=== PATIENT | male | born 1940 | race Caucasian/White ===

== ENCOUNTER 2017-04-21 22:11 | Inpatient (IN) | payer MEDICARE, OTHER ==
[~2017-04-21] VITALS: Ht 175.3 cm; Wt 76.8 kg
--- NOTE | ~2017-04-21 | HP ---
History And Physical [facility] [address] [place]. [address] NAME: ANUSHKA ROSARIO : 44 STATUS : ADM Colleen PAT#: [id number] AGE: 76 ADM/REG DATE : 04/21/17 MR#: [id number] REPORT SERV DATE: 04/22/17 DICTATED BY: REJI HERMOSILLO DATE: 04/22/17 REPORT STATUS : Draft TRANSCRIBED BY: MODL DATE: 04/22/17 DATE OF ADMISSION: 04/21/2017 CHIEF COMPLAINT: Fell off a ladder and became dizzy and passed out. 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 History is obtained from the patient and his and reviewing data available on the [employer] system as well. According to Mr. Rosario this afternoon, he was on a ladder trying to cut some branches off a tree, while coming down, he missed a step and fell off the ladder. He says he fell off about a height of 12 to 15 feet and fell to the ground. He fortunately fell onto some shrubbery which he says it partially broke his fall. However, he is not sure if he hit his head against anything. He was able to get up and was able to go into the house and he checked himself out. He felt okay, so he went back out outside and he was trying to do some other work in the yard. Then suddenly he started having weakness in both his lower extremities along with some dizziness, and he decided he was not feeling well, went on to a chair and sat down. This is how his found him while later. She says he was too weak even to stand up and was slow to speak. She is not sure if he passed out. The patient does not remember what had happened. She decided to bring him to the emergency room. Upon arrival here, they had difficulty getting him out of the car when he passed out again. In the emergency room, initial workup revealed hypotension upon arrival. He also had acute kidney injury, leukocytosis, and an elevated troponin as well. Hospitalist Service is asked to admit him for further evaluation and treatment. At the time of my evaluation, he denied any chest pain, palpitations, or orthopnea. He had no cough, hemoptysis, night sweats, or weight loss. He has not had any recent fevers or chills. No history of nausea, vomiting, diarrhea, hematemesis, hematochezia, or hematuria. No other history of recent travel or exposures other than those mentioned above. 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 He also has a history of some dementia. SOCIAL HISTORY: He does not smoke, drink, or use recreational. FAMILY HISTORY: Noncontributory. MEDICATIONS: At home were reviewed by me in the chart today and reordered by me. REVIEW OF SYSTEMS: As in history of present illness. All other systems were reviewed in detail and quite History And Physical [address] [address] NAME: ANUSHKA ROSARIO : 44 STATUS : ADM Colleen PAT#: [id number] AGE: 76 ADM/REG DATE : 04/21/17 MR#: [id number] REPORT SERV DATE: 04/22/17 DICTATED BY: REJI HERMOSILLO DATE: 04/22/17 REPORT STATUS : Draft TRANSCRIBED BY: VENESSA DATE: 04/22/17 unremarkable. PHYSICAL EXAMINATION: GENERAL: This is a pleasant 76-year-old, not in any acute distress. HEENT: He does have a small area of contusion in his head without any hematoma. Otherwise, normocephalic. His pupils were equal, reacting to light, and accommodating. External ocular muscles are intact. Membranes are moist and pink. Sclerae are nonicteric. NECK: Supple with no jugular venous distention, lymphadenopathy, or thyromegaly. LUNGS: Clear to auscultation with no wheezes, rubs, or crackles. HEART: Heart sounds were regular with no murmurs, rubs, or gallops. ABDOMEN: Soft and nontender. Bowel sounds were present. EXTREMITIES: Showed no cyanosis, clubbing, or edema. NEURO: Grossly intact. No focal sensory or motor deficits. Higher functions appeared intact. Gait was not examined. VITAL SIGNS: His vital signs today showed a temperature of 97 degrees Fahrenheit, pulse was 114, respirations are 20 a minute, and blood pressure was 91/62 upon arrival. Oxygen saturations were 100% breathing 2 to 3 L via nasal cannula. LABORATORY DATA: Reviewed on the [employer] system showed a sodium of 137, potassium 4.9, chloride 102, and CO2 of 21. BUN was 49 with a creatinine of 2.0. His blood glucose was 160. Troponin was elevated at 0.09, and a CBC showed a white blood cell count of 21,200, hemoglobin was 12.1, hematocrit 35.6, and platelet count was 141,000. His prothrombin time was 45.3 with an INR of 4.9. Urinalysis showed small blood, 2 rbc's, 2 wbc's. A 12-lead EKG done in the emergency room was reviewed and interpreted by me. There is normal sinus rhythm with a rate of [address] elevations or depressions. Films of the CT scan of his head showed no acute intracranial hemorrhage or other acute intracranial pathology. CT scan of the abdomen and pelvis showed no acute abdominal or pelvic pathology. There was no retroperitoneal hemorrhage. No solid organ contusion or lacerations were seen. No other skeletal injuries were noted as well. IMPRESSION: 1. Fall at home. 2. Closed head injury. 3. Hypotension. 4. Syncope. 5. Acute kidney injury. 6. Leukocytosis. 7. Elevated troponin. 8. Essential hypertension. 9. Prostate cancer, status post prostatectomy. 10.History of multiple venous thromboembolism. Now with coagulopathy. PLAN: We will admit Mr. Rosario to the Hospitalist Service with cardiac telemetry for a 24-hour History And Physical [address] [address] NAME: ANUSHKA ROSARIO : 44 STATUS : ADM Colleen PAT#: [id number] AGE: 76 ADM/REG DATE : 04/21/17 MR#: [id number] REPORT SERV DATE: 04/22/17 DICTATED BY: REJI HERMOSILLO DATE: 04/22/17 REPORT STATUS : Draft TRANSCRIBED BY: MODL DATE: 04/22/17 observation period. Hypotension had resolved well to volume replacement in the emergency room. We will continue and monitor his pressures closely. He does not have any signs of rhabdomyolysis at this time, but we will repeat his chemistry, electrolytes in the morning and proceed accordingly. We will also check his cultures. His leukocytosis may be due to his steroid therapy that he is on. We will continue all his other medications and treatments while here as well. We will place him on SCDs for DVT prophylaxis here. We will hold his warfarin as his INR is up, and we will repeat his PT/INR in the morning. I have discussed the above plans with the patient and his . Questions were answered and they are agreeable to the above recommendations. Hospitalist Service will be following him during his stay here. /VENESSA Reji Hermosillo M.D. / [id number] CC: Pedro Luis Dewey M.D.
--- NOTE | ~2017-04-21 | DS ---
Discharge Summary [facility] [address] [place]. [address] NAME: ANUSHKA FIELDS : 44 STATUS : DIS IN PAT#: [id number] AGE: 76 ADM/REG DATE : 04/22/17 MR#: [id number] REPORT SERV DATE: 04/26/17 DICTATED BY: ISSA COELLO DATE: 04/25/17 REPORT STATUS : Draft TRANSCRIBED BY: MODL DATE: 04/25/17 ADMISSION DATE: 04/22/2017 DISCHARGE DATE: 04/25/2017 DISCHARGE DIAGNOSES: 1. Bilateral falx hematoma related to recent fall. 2. Acute blood loss anemia secondary to bilateral falx hematoma related to recent fall, stable. 3. Acute kidney injury, resolved. 4. History of DVT and pulmonary embolism, 2011. 5. Leukocytosis, resolved. IMAGIN. CT brain, 04/21/2017, impression: No acute intracranial hemorrhage or other acute intracranial pathology. 2. Chest x-ray, 04/21/2017, impression: No acute cardiopulmonary abnormality. 3. CT abdomen and pelvis, 04/21/2017, impression: No acute abdominal or pelvic pathology. No intraperitoneal or retroperitoneal hemorrhage. No solid organ contusion or laceration. 4. Bilateral knee x-ray, 04/21/2017, impression: No acute bony abnormality. 5. Echocardiogram, 04/22/2017, impression: Normal left ventricular systolic function with estimated ejection fraction of 55% to 60%. Normal right ventricular size and function. Mild diastolic dysfunction. No obvious etiology for syncope is suggested. LABORATORY DATA: WBC 7.3, hemoglobin 7.7, hematocrit 23.3, and platelet count is 97. HOSPITAL STAY: Please refer to history and physical dictated by Dr. Cuellar on 04/22/2017 for complete admission details. This patient is a 76-year-old male who presents with a history of hypertension; prostate cancer, status post prostatectomy; and history of multiple venous thromboembolisms in lower extremity, on anticoagulation. The patient presented to [facility] Emergency Room due to a recent fall from ladder. Imaging was obtained, which is noted above. The patient was followed closely. Anticoagulation was held upon admission. The patient's thighs were wrapped with Earl wraps and monitored closely. Physical therapy did assess the patient. Initially, patient had acute kidney injury, which did resolve. Upon admission, BUN was 46, creatinine was 1.33. Upon discharge, BUN is 20 and creatinine is 0.83. It was also noted that the patient had leukocytosis of 11.2 upon admission, upon discharge is 7.3. The patient was monitored and no signs of infection were noted. The patient's hematoma was assessed and monitored during his stay. Anticoagulation was held. We will follow up with Dr. Bandar Turpin on 04/27/2017. At that time, the patient will be reassessed regarding his anticoagulation. The patient did decline any home health or physical therapy upon discharge. DISCHARGE MEDICATIONS: 1. Vitamin D 5000 units p.o. daily. Discharge Summary [facility] [id number] [place]. [address] NAME: ANUSHKA FIELDS : 44 STATUS : DIS IN PAT#: [id number] AGE: 76 ADM/REG DATE : 04/22/17 MR#: [id number] REPORT SERV DATE: 04/26/17 DICTATED BY: ISSA COELLO. DATE: 04/25/17 REPORT STATUS : Draft TRANSCRIBED BY: VENESSA DATE: 04/25/17 2. Aricept 5 mg one p.o. nightly. 3. Aricept 10 mg one p.o. nightly. 4. Robaxin 750 mg one p.o. three times daily. 5. Lopressor 50 mg one p.o. daily. 6. Prilosec 40 mg one p.o. daily. 7. Prednisone 20 mg one p.o. twice daily. 8. Zocor 10 mg one p.o. daily. 9. Multivitamin plus omega-3. 10.Melatonin 10 mg/20 mg p.o. at bedtime. This patient is being discharged home in hemodynamically stable condition. We will follow up with his primary care on 04/27/2017. Until that time, patient will hold his Coumadin. This discharge took greater than 30 minutes. [facility]/VENESSA Felicia Turpin, USED [employer] SALES REPRESENTATIVE Issa Coello M.D. / [id number] CC: Eugenia Pickett
[~2017-04-21 22:11] MED LIST: AMIT75 PO; ANALPRAM-HC RE; ANUSOL HC SUPP1 SUPP PR; ASAB PO; C1 PO; C2 PO; COUMADIN10 MG PO; COUMADIN4 MG PO; COUMADIN6 MG PO; DCN100 PO; FIORICET OR; FIORICET PO; IRON325 MG PO; LEXAPRO20 PO; LOP50 PO; LOTRISONE CREAM15 GM T; MELATONIN10 M2 PO; METHOC750B PO; MOBIC15 MG PO; MULTIPLE VIT PO; NEUR300 PO; PRAV10 PO; PREV30 PO; TOPXL100 PO; VIT D2 PO; ZANTAC 75 PO; ZOCOR10 PO; ZOCOR20 PO
[2017-04-21 22:55] LABS: BASOPHILS 0 %; BASOPHILS ABSOLUTE 0.01 10/3/uL (0.0-0.16); EOSINOPHILS 0 %; EOSINOPHILS ABSOLUTE 0.01 10/3/uL (0.0-0.53); HEMATOCRIT 35.6 % (40.0-51.0); HEMOGLOBIN 12.1 g/dL (13.6-17.8); IMMATURE GRANULOCYTES ABSOLUTE 0.21 10/3/uL (0.0-0.11); LYMPHOCYTES 6.9 %; LYMPHOCYTES ABSOLUTE 1.47 10/3/uL (0.67-4.30); MEAN CORPUSCULAR HEMOGLOB 33.3 pg (26.0-34.0); MEAN CORPUSCULAR VOLUME 98.1 fL (80-100); MEAN PLATELET VOLUME 10.7 fL (9.2-13.0); MONOCYTES ABSOLUTE 1.48 10/3/uL (0.21-1.20); NEUTROPHILS 85.1 %; NEUTROPHILS ABSOLUTE 18.05 10/3/uL (2.02-8.40); PLATELET COUNT 141 10/3/uL (150-400); RBC DISTRIBUTION WIDTH 13.2 % (12.0-16.0); RED CELL COUNT 3.63 10/6/uL (4.7-6.1)
[2017-04-21 22:56] LABS: MANUAL DIFF NO %; WHITE BLOOD CELLS 21.2 10/3/uL (4.5-10.5)
[2017-04-21 23:02] LABS: INTERNATIONAL NORMAL RATI 4.9 UNITS (-); PARTIAL THROMBO TIME 32.6 SEC (22.5-37.2)
[2017-04-21 23:06] LABS: PROTIME (NOT ORD) 45.3 SEC (12.0-14.5)
[2017-04-21 23:13] LABS: CHLORIDE, SERUM 102 MMOL/L (96-112); DIRECT BILIRUBIN 0.2 MG/DL (0.0-0.4); POTASSIUM, SERUM 4.9 MMOL/L (3.5-5.3); SGPT(ALT) 42 U/L (5-65); TOTAL PROTEIN 6.1 G/DL (6.0-8.5)
[2017-04-21 23:14] LABS: BUN (BLOOD UREA NITROGEN) 49 MG/DL (6-23); CALCIUM, SERUM 8.1 MG/DL (8.5-10.4); CO2 (CARBON DIOXIDE) 21 MMOL/L (24-34); GFR AFRICAN AMERICAN 37 ML/MIN (>=60); GFR NON AFRICAN AMERICAN 32 ML/MIN (>=60); GLUCOSE, SERUM 160 MG/DL (60-99); SODIUM, SERUM 137 MMOL/L (135-148)
[2017-04-21 23:15] LABS: ALBUMIN 3.4 G/DL (3.5-5.0); ALKALINE PHOSPHATASE 73 U/L (45-117); CHEST PAIN PROFILE TAT 0 Hrs 25 Mins; SGOT(AST) 56 U/L (5-40); TOTAL BILIRUBIN 1.2 MG/DL (0-1.2); TROPONIN I 0.09 NG/ML (<0.05)
[2017-04-21] MEDS ORDERED: ARICEPT5 PO (23:39)
[2017-04-21] MEDS ORDERED: PRILOSEC40 MG PO (23:40)
[2017-04-21] MEDS ORDERED: ARICEPT10 PO (23:40)
[2017-04-21] MEDS ORDERED: P20 PO (23:40)
[2017-04-21] MEDS ORDERED: ZOCOR10 PO (23:41)
[2017-04-21] MEDS ORDERED: LOP50 PO (23:41)
[2017-04-21] MEDS ORDERED: COUMADIN3 MG PO (23:43)
[2017-04-21] MEDS ORDERED: COUMADIN4 MG PO (23:43)
[2017-04-21] MEDS ORDERED: NEUR300 PO (23:43)
[2017-04-21] MEDS ORDERED: METHOC750B PO (23:44)
[2017-04-21] MEDS ORDERED: D 5000 PO (23:44)
[2017-04-21] MEDS ORDERED: MULTIPLE VIT PO (23:44)
[2017-04-21] MEDS ORDERED: OMEGA PO (23:44)
[2017-04-21] MEDS ORDERED: MELATONIN10 M2 PO (23:45)
[2017-04-22 01:48] LABS: ASCORBIC ACID (UR NOT ORDER) 40 (NEG); BILIRUBIN, URINE SMALL (NEG); ER URINALYSIS TAT 0 Hrs 00 Mins; KETONE, URINE NEGATIVE (NEG); LEUKOCYTE ESTERASE(NOT OR NEG (NEG); NITRITE (URINE) NEG (NEG); WBC (NOT ORDERED) (RFLEX) 2 (0-5)
[2017-04-22 07:35] LABS: BASOPHILS 0 %; EOSINOPHILS 0.3 %; EOSINOPHILS ABSOLUTE 0.03 10/3/uL (0.0-0.53); IMMATURE GRANULOCYTES 0.5 %; IMMATURE GRANULOCYTES ABSOLUTE 0.06 10/3/uL (0.0-0.11); LYMPHOCYTES 13.5 %; LYMPHOCYTES ABSOLUTE 1.51 10/3/uL (0.67-4.30); MEAN CORPUS HGB CONC 34.7 g/dL (32.0-36.0); MEAN CORPUSCULAR HEMOGLOB 33.2 pg (26.0-34.0); MEAN CORPUSCULAR VOLUME 95.7 fL (80-100); MEAN PLATELET VOLUME 10.3 fL (9.2-13.0); MONOCYTES 7.2 %; MONOCYTES ABSOLUTE 0.81 10/3/uL (0.21-1.20); NEUTROPHILS 78.5 %; PLATELET COUNT 104 10/3/uL (150-400); RBC DISTRIBUTION WIDTH 13.5 % (12.0-16.0)
[2017-04-22 07:41] LABS: HEMATOCRIT 24.5 % (40.0-51.0); HEMOGLOBIN 8.5 g/dL (13.6-17.8); RED CELL COUNT 2.56 10/6/uL (4.7-6.1); WHITE BLOOD CELLS 11.2 10/3/uL (4.5-10.5)
[2017-04-22 07:42] LABS: MANUAL DIFF NO %
[2017-04-22 07:45] LABS: BUN (BLOOD UREA NITROGEN) 46 MG/DL (6-23); CALCIUM, SERUM 7.5 MG/DL (8.5-10.4); CHLORIDE, SERUM 105 MMOL/L (96-112); CO2 (CARBON DIOXIDE) 25 MMOL/L (24-34); CREATININE 1.33 MG/DL (0.70-1.30); GFR AFRICAN AMERICAN 61 ML/MIN (>=60); GFR NON AFRICAN AMERICAN 52 ML/MIN (>=60); GLUCOSE, SERUM 127 MG/DL (60-99); INTERNATIONAL NORMAL RATI 4.6 UNITS (-); PHOSPHORUS, SERUM 2.8 MG/DL (2.5-4.5); POTASSIUM, SERUM 4.6 MMOL/L (3.5-5.3); SODIUM, SERUM 139 MMOL/L (135-148); TROPONIN I 0.14 NG/ML (<0.05)
[2017-04-22 07:48] LABS: PROTIME (NOT ORD) 43.2 SEC (12.0-14.5)
[2017-04-22 15:29] LABS: HEMOGLOBIN 6.3 g/dL (13.6-17.8)
[2017-04-23 04:59] LABS: BASOPHILS 0 %; EOSINOPHILS 0 %; IMMATURE GRANULOCYTES 0.7 %; IMMATURE GRANULOCYTES ABSOLUTE 0.06 10/3/uL (0.0-0.11); LYMPHOCYTES 7.7 %; LYMPHOCYTES ABSOLUTE 0.63 10/3/uL (0.67-4.30); MEAN CORPUS HGB CONC 34.6 g/dL (32.0-36.0); MEAN PLATELET VOLUME 10.5 fL (9.2-13.0); MONOCYTES 7.4 %; MONOCYTES ABSOLUTE 0.61 10/3/uL (0.21-1.20); NEUTROPHILS 84.2 %; NEUTROPHILS ABSOLUTE 6.91 10/3/uL (2.02-8.40); RED CELL COUNT 2.72 10/6/uL (4.7-6.1); WHITE BLOOD CELLS 8.2 10/3/uL (4.5-10.5)
[2017-04-23 05:02] LABS: HEMATOCRIT 23.4 % (40.0-51.0); HEMOGLOBIN 8.1 g/dL (13.6-17.8); MEAN CORPUSCULAR HEMOGLOB 29.8 pg (26.0-34.0); RBC DISTRIBUTION WIDTH 22.1 % (12.0-16.0)
[2017-04-23 05:03] LABS: PLATELET COUNT 67 10/3/uL (150-400)
[2017-04-23 05:05] LABS: MANUAL DIFF NO %
[2017-04-23 05:07] LABS: INTERNATIONAL NORMAL RATI 1.5 UNITS (-)
[2017-04-23 05:08] LABS: PROTIME (NOT ORD) 17.5 SEC (12.0-14.5)
[2017-04-23 05:13] LABS: CALCIUM, SERUM 7.4 MG/DL (8.5-10.4); CHLORIDE, SERUM 107 MMOL/L (96-112); CO2 (CARBON DIOXIDE) 27 MMOL/L (24-34); CREATININE 0.91 MG/DL (0.70-1.30); GFR AFRICAN AMERICAN 96 ML/MIN (>=60); GFR NON AFRICAN AMERICAN 83 ML/MIN (>=60); GLUCOSE, SERUM 122 MG/DL (60-99); POTASSIUM, SERUM 4.2 MMOL/L (3.5-5.3); SODIUM, SERUM 138 MMOL/L (135-148)
[2017-04-23 05:18] LABS: BUN (BLOOD UREA NITROGEN) 27 MG/DL (6-23)
[2017-04-23 06:27] LABS: PLATELET ESTIMATE DEC (ADEQUATE)
[2017-04-23 06:28] LABS: MICROCYTES 1+ (5-10/OIF) (0-5/OIF)
[2017-04-24 06:06] LABS: BASOPHILS 0 %; EOSINOPHILS 0.1 %; EOSINOPHILS ABSOLUTE 0.01 10/3/uL (0.0-0.53); HEMATOCRIT 22.4 % (40.0-51.0); HEMOGLOBIN 7.7 g/dL (13.6-17.8); IMMATURE GRANULOCYTES 1.1 %; IMMATURE GRANULOCYTES ABSOLUTE 0.09 10/3/uL (0.0-0.11); LYMPHOCYTES 8.5 %; LYMPHOCYTES ABSOLUTE 0.68 10/3/uL (0.67-4.30); MEAN CORPUS HGB CONC 34.4 g/dL (32.0-36.0); MEAN CORPUSCULAR VOLUME 87.2 fL (80-100); MEAN PLATELET VOLUME 9.9 fL (9.2-13.0); MONOCYTES 7.1 %; MONOCYTES ABSOLUTE 0.57 10/3/uL (0.21-1.20); NEUTROPHILS 83.2 %; NEUTROPHILS ABSOLUTE 6.64 10/3/uL (2.02-8.40); PLATELET COUNT 69 10/3/uL (150-400); RBC DISTRIBUTION WIDTH 21.7 % (12.0-16.0); RED CELL COUNT 2.57 10/6/uL (4.7-6.1)
[2017-04-24 06:07] LABS: MANUAL DIFF NO %
[2017-04-24 06:13] LABS: CALCIUM, SERUM 7.9 MG/DL (8.5-10.4); CHLORIDE, SERUM 105 MMOL/L (96-112); CO2 (CARBON DIOXIDE) 26 MMOL/L (24-34); CREATININE 0.83 MG/DL (0.70-1.30); GFR AFRICAN AMERICAN 100 ML/MIN (>=60); GFR NON AFRICAN AMERICAN 87 ML/MIN (>=60); GLUCOSE, SERUM 128 MG/DL (60-99); POTASSIUM, SERUM 4.1 MMOL/L (3.5-5.3); SODIUM, SERUM 137 MMOL/L (135-148)
[2017-04-24 06:14] LABS: BUN (BLOOD UREA NITROGEN) 20 MG/DL (6-23)
[2017-04-24 07:29] LABS: PLATELET ESTIMATE DEC (ADEQUATE)
[2017-04-25 05:12] LABS: BASOPHILS 0 %; EOSINOPHILS 0.1 %; EOSINOPHILS ABSOLUTE 0.01 10/3/uL (0.0-0.53); HEMATOCRIT 23.3 % (40.0-51.0); HEMOGLOBIN 7.7 g/dL (13.6-17.8); IMMATURE GRANULOCYTES 1.2 %; IMMATURE GRANULOCYTES ABSOLUTE 0.09 10/3/uL (0.0-0.11); LYMPHOCYTES 10.3 %; LYMPHOCYTES ABSOLUTE 0.75 10/3/uL (0.67-4.30); MEAN CORPUSCULAR HEMOGLOB 29.4 pg (26.0-34.0); MEAN CORPUSCULAR VOLUME 88.9 fL (80-100); MEAN PLATELET VOLUME 9.6 fL (9.2-13.0); MONOCYTES 7.2 %; MONOCYTES ABSOLUTE 0.52 10/3/uL (0.21-1.20); NEUTROPHILS 81.2 %; NEUTROPHILS ABSOLUTE 5.88 10/3/uL (2.02-8.40); RBC DISTRIBUTION WIDTH 20.7 % (12.0-16.0); RED CELL COUNT 2.62 10/6/uL (4.7-6.1); WHITE BLOOD CELLS 7.3 10/3/uL (4.5-10.5)
[2017-04-25 05:15] LABS: MANUAL DIFF NO %; PLATELET COUNT 97 10/3/uL (150-400)
== END 2017-04-25 13:45 | disposition home or self-care (01) | DRG 83 ==
LOC: ENRESERVTM → ENRESERVDT → ENRESERV → ER 22:11 → CDU1 23:59 → 4EA 04-22 10:59 → CDU1 04-22 10:59 → 4EA 04-23 15:25
PROVIDERS: Emergency Medicine; Internal Medicine
PROC: 30233N1 Transfusion of Nonautologous Red Blood Cells into Peripheral Vein, Percutaneous Approach (ICD-10-PCS; principal; 2017-04-22)
DX: S06.9X9A Unspecified intracranial injury with loss of consciousness of unspecified duration, initial encounter (principal); N17.9 Acute kidney failure, unspecified; I95.9 Hypotension, unspecified; D62 Acute posthemorrhagic anemia; I10 Essential (primary) hypertension; W11.XXXA Fall on and from ladder, initial encounter; Z79.01 Long term (current) use of anticoagulants; Z79.899 Other long term (current) drug therapy; Z86.718 Personal history of other venous thrombosis and embolism; Z85.46 Personal history of malignant neoplasm of prostate; Z90.79 Acquired absence of other genital organ(s); Z88.5 Allergy status to narcotic agent; Z88.8 Allergy status to other drugs, medicaments and biological substances
CPT/HCPCS: 36415; 70450; 71010; 73560-RT; 73590-LT; 74176; 80048; 80076; 81001; 82533; 83735; 84100; 84484; 85014; 85018; 85025; 85610; 85730; 86850; 86900; 86901; 86920; 87040; 93005; 93306; 99285; A9270-GY; P9016; P9059